=== PATIENT | female | born 1940 | race Two or more races ===

== ENCOUNTER 2016-08-18 08:08 | Emergency (ER) | payer MEDICARE, OTHER ==
[2016-08-18] MEDS ORDERED: ONDANSETRON 4 MG/2 ML VIAL IVP STA (08:31)
[2016-08-18] MEDS ORDERED: HYDROmorphone 1 MG/ML SYRINGE IVP STA ×2 (08:31→09:29)
[2016-08-18] MEDS ORDERED: SODIUM CHLORIDE 0.9% 1,000 ML IV ONE (08:31)
[2016-08-18] MEDS ORDERED: HYDROmorphone 1 MG/ML SYRINGE ONE ×2 (08:33→09:32)
[2016-08-18] MEDS ORDERED: ONDANSETRON 4 MG/2 ML VIAL ONE (08:34)
[2016-08-18] MEDS ORDERED: oxyCODONE 5 MG TABLET PO STA (14:47)
[2016-08-18] MEDS ORDERED: oxyCODONE 5 MG TABLET ONE (14:48)
== END 2016-08-18 15:16 | disposition home or self-care (01) ==
DX: N13.2 Hydronephrosis with renal and ureteral calculous obstruction (principal); R09.02 Hypoxemia; N28.9 Disorder of kidney and ureter, unspecified; I11.0 Hypertensive heart disease with heart failure; I50.9 Heart failure, unspecified
CPT/HCPCS: 36415; 71020; 71250; 74176; 76700; 80053; 81001; 83690; 84484; 85025; 96374; 96375; 96376; 99284; A9270; J1170

== ENCOUNTER 2016-12-19 08:00 | Outpatient (CLI) | payer MEDICARE, OTHER ==
[2016-12-19 15:00] LABS: CALCIUM 9.5 mg/dL (8.5-10.3); CREATININE 1.5 mg/dL (0.4-1.0); POTASSIUM 4.1 mmol/L (3.5-5.0)
== END 2016-12-19 23:59 ==
LOC: LAB.R 08:00
PROVIDERS: ATTEND Physician Assistant Medical
DX: I50.9 Heart failure, unspecified (principal); Z79.899 Other long term (current) drug therapy; R94.4 Abnormal results of kidney function studies
CPT/HCPCS: 80048; 83880

== ENCOUNTER 2017-01-30 11:15 | Outpatient (CLI) | payer MEDICARE, OTHER ==
[2017-01-30 14:18] LABS: CALCIUM 9.2 mg/dL (8.5-10.3); CREATININE 1.5 mg/dL (0.4-1.0); POTASSIUM 4.4 mmol/L (3.5-5.0)
== END 2017-01-30 11:16 | disposition home or self-care (01) ==
LOC: LAB.N 11:15
PROVIDERS: ATTEND Internal Medicine
DX: I50.9 Heart failure, unspecified (principal)
CPT/HCPCS: 36415; 80048; 83880

== ENCOUNTER 2017-02-27 13:15 | Outpatient (CLI) | payer MEDICARE, OTHER | END 2017-02-27 13:16 | disposition home or self-care (01) | LOC: RT 13:15 | PROVIDERS: ATTEND Internal Medicine Cardiovascular Disease | DX: R06.02 Shortness of breath (principal) | CPT/HCPCS: 93005 ==

== ENCOUNTER 2017-03-06 11:02 | Outpatient (CLI) | payer MEDICARE, OTHER ==
--- NOTE | 2017-03-06 17:01 | XRAY Report ---
TWO-VIEW CHEST: 03/06/2017 CLINICAL INDICATION: Shortness of breath, CHF. FINDINGS: Frontal and lateral views of the chest demonstrate an enlarged cardiac silhouette. Postop erative changes in the right upper lung are stable from CT of 08/18/2016. Trace right pleural effusi on is new from CT. No pulmonary vascular congestion, focal infiltrate, or pneumothorax is evident. IMPRESSION: CARDIOMEGALY. TRACE RIGHT PLEURAL EFFUSION, NEW FROM PREVIOUS CT. STABLE POSTOPERATIVE CHANGES. JOB #: [id number] EXT JOB #:[id number]
== END 2017-03-06 11:03 | disposition home or self-care (01) ==
LOC: DI 11:02
PROVIDERS: ATTEND Internal Medicine Cardiovascular Disease
DX: I50.9 Heart failure, unspecified (principal); R06.02 Shortness of breath; I50.20 Unspecified systolic (congestive) heart failure; I07.1 Rheumatic tricuspid insufficiency
CPT/HCPCS: 71020; 93306

== ENCOUNTER 2017-03-17 12:10 | Outpatient (CLI) | payer MEDICARE, OTHER ==
[2017-03-17 14:13] LABS: PT - PROTHROMBIN TIME 69.8 secs (9.9-12.6)
[2017-03-17 14:37] LABS: INR 6.1 (0.8-1.2)
== END 2017-03-17 12:11 | disposition home or self-care (01) ==
LOC: LAB 12:10
PROVIDERS: ATTEND Internal Medicine Cardiovascular Disease
DX: I48.2 Chronic atrial fibrillation (principal)
CPT/HCPCS: 85610

== ENCOUNTER 2017-03-19 13:41 | Outpatient (CLI) | payer MEDICARE, OTHER ==
[2017-03-19 14:13] LABS: PT - PROTHROMBIN TIME 34.1 secs (9.9-12.6)
== END 2017-03-19 13:42 | disposition home or self-care (01) ==
LOC: LAB 13:41
PROVIDERS: ATTEND Internal Medicine Cardiovascular Disease
DX: I48.2 Chronic atrial fibrillation (principal)
CPT/HCPCS: 36415; 85610

== ENCOUNTER 2017-03-24 13:40 | Outpatient (CLI) | payer MEDICARE, OTHER ==
[2017-03-24 14:24] LABS: INR 2.8 (0.8-1.2); PT - PROTHROMBIN TIME 31.7 secs (9.9-12.6)
== END 2017-03-24 13:41 | disposition home or self-care (01) ==
LOC: LAB 13:40
PROVIDERS: ATTEND Internal Medicine Cardiovascular Disease
DX: I48.2 Chronic atrial fibrillation (principal)
CPT/HCPCS: 36415; 85610

== ENCOUNTER 2017-03-31 12:28 | Outpatient (CLI) | payer MEDICARE, OTHER ==
[2017-03-31 13:02] LABS: INR 3.8 (0.8-1.2); PT - PROTHROMBIN TIME 43.7 secs (9.9-12.6)
== END 2017-03-31 12:29 | disposition home or self-care (01) ==
LOC: LAB 12:28
PROVIDERS: ATTEND Internal Medicine Cardiovascular Disease
DX: I48.2 Chronic atrial fibrillation (principal)
CPT/HCPCS: 36415; 85610

== ENCOUNTER 2017-04-07 10:41 | Outpatient (CLI) | payer MEDICARE, OTHER ==
[2017-04-07 11:16] LABS: INR 2.7 (0.8-1.2); PT - PROTHROMBIN TIME 30.4 secs (9.9-12.6)
== END 2017-04-07 10:42 | disposition home or self-care (01) ==
LOC: LAB 10:41
PROVIDERS: ATTEND Internal Medicine Cardiovascular Disease
DX: I48.2 Chronic atrial fibrillation (principal)
CPT/HCPCS: 36415; 85610

== ENCOUNTER 2017-04-18 13:44 | Outpatient (CLI) | payer MEDICARE, OTHER ==
[2017-04-18 14:26] LABS: INR 1.4 (0.8-1.2); PT - PROTHROMBIN TIME 15.7 secs (9.9-12.6)
== END 2017-04-18 13:45 | disposition home or self-care (01) ==
LOC: LAB 13:44
PROVIDERS: ATTEND Internal Medicine Cardiovascular Disease
DX: I48.2 Chronic atrial fibrillation (principal)
CPT/HCPCS: 36415; 85610

== ENCOUNTER 2017-04-27 12:00 | Outpatient (CLI) | payer MEDICARE, OTHER | END 2017-04-27 12:01 | disposition home or self-care (01) | LOC: DI 12:00 | PROVIDERS: ATTEND Internal Medicine | DX: I48.91 Unspecified atrial fibrillation (principal); I07.1 Rheumatic tricuspid insufficiency; I37.1 Nonrheumatic pulmonary valve insufficiency | CPT/HCPCS: 93306 ==

== ENCOUNTER 2017-04-28 10:09 | Outpatient (CLI) | payer MEDICARE, OTHER ==
[2017-04-28 14:04] LABS: PT - PROTHROMBIN TIME 50.7 secs (9.9-12.6)
[2017-04-28 14:28] LABS: INR 4.5 (0.8-1.2)
== END 2017-04-28 10:10 | disposition home or self-care (01) ==
LOC: LAB.N 10:09
PROVIDERS: ATTEND Internal Medicine Cardiovascular Disease
DX: I48.2 Chronic atrial fibrillation (principal)
CPT/HCPCS: 36415; 85610

== ENCOUNTER 2017-05-06 10:07 | Outpatient (CLI) | payer MEDICARE, OTHER | END 2017-05-06 10:08 | disposition home or self-care (01) | LOC: LAB.N 10:07 | PROVIDERS: ATTEND Internal Medicine | DX: I48.2 Chronic atrial fibrillation (principal) | CPT/HCPCS: 85610 ==

== ENCOUNTER 2017-05-07 05:44 | Outpatient (CLI) | payer MEDICARE, OTHER | END 2017-05-07 05:45 | disposition critical access hospital (66) | LOC: EMS 05:44 | PROVIDERS: ATTEND Surgery | DX: R07.9 Chest pain, unspecified (principal) | CPT/HCPCS: A0425; A0429 ==

== ENCOUNTER 2017-05-07 06:16 | Emergency (ER) | payer MEDICARE, OTHER ==
[2017-05-07] MEDS ORDERED: HYDROmorphone 1 MG/ML CARPUJECT IVP STA (06:43)
[2017-05-07] MEDS ORDERED: HYDROmorphone 1 MG/ML CARPUJECT ONE (06:51)
[2017-05-07] MEDS ORDERED: SODIUM CHLORIDE FLUSH 0.9% 10 ML SYRINGE IVP ONE ×2 (06:52→10:14)
[2017-05-07 07:09] LABS: BASOPHILS # (AUTO) 0.1 10^3/uL (0.0-0.1); BASOPHILS % (AUTO) 1.2 %; EOSINOPHILS # (AUTO) 0.1 10^3/uL (0.0-0.7); EOSINOPHILS % (AUTO) 1.9 %; HCT - HEMATOCRIT 43.5 % (37.0-47.0); LYMPHOCYTES # (AUTO) 0.8 10^3/uL (1.5-3.5); MEAN CORPUSCULAR HEMOGLOBIN 30.4 pg (27.0-31.0); MEAN CORPUSCULAR HGB CONC 32.1 g/dL (32.0-36.0); MEAN CORPUSCULAR VOLUME 94.8 fL (81.0-99.0); MEAN PLATELET VOLUME 9.7 fL (7.9-10.8); MONOCYTES # (AUTO) 0.7 10^3/uL (0.0-1.0); MONOCYTES % (AUTO) 12.1 %; NEUTROPHILS % (AUTO) 70.8 %; NUCLEATED RED BLOOD CELLS AUTO 0.2 /100WBC; RED BLOOD COUNT 4.59 10^6/uL (4.20-5.40); RED CELL DISTRIBUTION WIDTH 18.5 % (12.0-15.0); UNCORRECTED WHITE BLOOD COUNT 5.7 x10^3/uL; WHITE BLOOD COUNT 5.7 x10^3/uL (4.8-10.8)
[2017-05-07 07:21] LABS: CALCIUM 9.4 mg/dL (8.5-10.3); CREATININE 1.9 mg/dL (0.4-1.0); POTASSIUM 4.3 mmol/L (3.5-5.0)
--- NOTE | 2017-05-07 08:51 | CT Preliminary Report ---
Exam: CT Abdomen/Pelvis W/O IMPRESSION: 1. Slightly displaced left posterior ninth rib fracture 2. Third spacing with severe anasarca, small pleural effusions and mild ascites 3. Moderate cardiomegaly with right heart enlargement 4. Renal cortical thinning with scarring 5. Colonic diverticulosis 6. Degenerative lumbar spine [facility] SITE ID: [id number]
--- NOTE | 2017-05-07 08:53 | XRAY Preliminary Report ---
Exam: XR Chest 2 View PA/LAT IMPRESSION: 1. Cardiomegaly with vascular congestion without edema 2. Bibasilar subsegmental atelectasis 3. Small effusions [facility] SITE ID: [id number]
--- NOTE | 2017-05-07 08:54 | CT Report ---
EXAM: CT ABDOMEN AND PELVIS EXAM DATE: 05/07/2017 08:25 AM. CLINICAL HISTORY: LUQ tenderness after chest injury. COMPARISONS: CT abdomen and pelvis 08/18/2016. TECHNIQUE: Routine helical CT imaging was performed through the abdomen and pelvis. IV contrast: None . Enteric contrast: No. Reconstructions: Coronal and sagittal. In accordance with CT protocol optimization, one or more of the following dose reduction techniques w ere utilized for this exam: automated exposure control, adjustment of mA and/or KV based on patient s ize, or use of iterative reconstructive technique. FINDINGS: Lung Bases: Small right greater than left pleural effusions. Subsegmental atelectasis at the bases. R espiratory motion artifact. Moderate cardiomegaly with asymmetric right heart enlargement. Coronary artery atherosclerotic calcif ications. Liver: Normal. No masses. Gallbladder/Bile Ducts: Unremarkable. Spleen: Normal. Pancreas: Moderate pancreatic atrophy. No ductal dilatation. No mass seen. Adrenal Glands: Normal. Kidneys: Renal cortical thinning. Multifocal renal cortical loss consistent with scarring. No hydrone phrosis. Peritoneal Cavity/Bowel: Colonic diverticulosis. Pelvic Organs: Hysterectomy. Vasculature: Moderate aortoiliac atherosclerotic calcifications. Slight infrarenal aortic ectasia. 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 Bones: Degenerative changes at the pubic symphysis. Osteopenia. Slightly displaced left posterior juli th rib fracture. Retrolisthesis of L2 on L3 and L1 on L2. Grade 1 anterolisthesis of L4 on L5. Lumbar facet degenerative arthropathy. Other: Severe anasarca. Rectus diastases. Small fat and fluid-containing umbilical hernia. Pelvic wal l scarring. Mild ascites distending from the cul-de-sac into the bilateral paracolic gutters and into the upper abdomen beneath the diaphragms and scattered in the mesenteric leaflets. IMPRESSION: 1. Slightly displaced left posterior ninth rib fracture 2. Third spacing with severe anasarca, small pleural effusions and mild ascites 3. Moderate cardiomegaly with right heart enlargement 4. Renal cortical thinning with scarring 5. Colonic diverticulosis 6. Degenerative lumbar spine [facility] Referring Provider Line: [phone] SITE ID: [id number]
--- NOTE | 2017-05-07 08:55 | XRAY Report ---
EXAM: CHEST RADIOGRAPHY EXAM DATE: 05/07/2017 08:23 AM. CLINICAL HISTORY: Left chest pain after fall. COMPARISON: Chest radiograph 08/18/2016. TECHNIQUE: 2 views. FINDINGS: Lungs/Pleura: Vascular congestion. Bibasilar subsegmental atelectasis. Partial right lung resection. Blunting costophrenic angles. Mediastinum: Stable, enlarged cardiac silhouette Other: Osteopenia. Rotator cuff tears with high riding humeral heads IMPRESSION: 1. Cardiomegaly with vascular congestion without edema 2. Bibasilar subsegmental atelectasis 3. Small effusions [facility] Referring Provider Line: [phone] SITE ID: [id number]
--- NOTE | 2017-05-07 09:43 | ED Physician Documentation ---
PD HPI TRUNK INJURY - Stated complaint Stated Complaint: CHEST WALL PAIN - Chief complaint Chief Complaint: Trauma Ch/Bk - History obtained from History obtained from: Patient, Family - History of Present Illness Location: Posterior chest, Left chest Type of injury: Fall Timing - onset: How many days ago (4) Timing - duration: Days (4) Timing - details: Abrupt onset, Still present Quality: Pain, Spasm, Sharp Improved by: Rest, Immobilization Worsened by: Moving, Palpating Associated symtptoms: Discoloration. No: Weakness, Numbness Contributing factors: No: Anticoagulated Where injury occured: Home Similar symptoms before: Has not had sx before Recently seen: Not recently seen - Additional information Additional information: 77-year-old female with a history of pulmonary hypertension and congestive heart failure was in her home on Friday when she went to stand on a stool to get into her bed she slipped and fell and landed against a chest of drawers and hit the drawer knob on her back on the left. She has pain and a bruise to that area and the pain is much worse today. This morning about 4 AM she awoken with severe pain and the ambulance was called. Review of Systems Constitutional: denies: Fever, Chills, Myalgias Eyes: denies: Decreased vision Ears: denies: Ear pain Nose: denies: Congestion Throat: denies: Sore throat Cardiac: reports: Chest pain / pressure, Pedal edema. denies: Palpitations Respiratory: denies: Dyspnea, Cough GI: reports: Nausea. denies: Abdominal Pain, Vomiting, Constipation, Diarrhea : denies: Dysuria, Frequency Skin: denies: Rash Musculoskeletal: reports: Back pain, Extremity swelling. 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 - Present Medications Home Medications: Ambulatory Orders Medication Instructions Recorded Confirmed Carvedilol 25 mg PO BID 01/12/15 12/27/15 Losartan [Cozaar] 50 mg PO BID 01/12/15 12/27/15 amLODIPine [Norvasc] 5 mg PO DAILY 01/12/15 12/27/15 Furosemide [Lasix] 20 mg PO DAILY 11/28/15 12/27/15 Tolterodine Tartrate [Detrol] 2 mg PO DAILY 11/28/15 12/27/15 Venlafaxine ER [Effexor ER] 75 mg PO DAILY 11/28/15 12/27/15 Acetaminophen [Tylenol] 325 mg PO Q6H PRN 12/26/15 12/27/15 Hydrocodone/Acetaminophen [[place] 1 each PO Q6H PRN #20 tablet 03/12/16 5-325 Tablet] Naproxen 375 mg PO BID #20 tablet 03/12/16 Ondansetron Odt [Zofran] 4 mg TL Q6H PRN #10 tablet 08/18/16 oxyCODONE [Roxicodone] 5 mg PO Q4-6H #20 tablet 08/18/16 oxyCODONE/ACET 5/325 [Percocet 5 1 - 2 each PO Q6H PRN #20 tablet 05/07/17 mg/325 mg] - Allergies Allergies/Adverse Reactions: Allergies Allergy/AdvReac Type Severity Reaction Status Date / Time Penicillins Allergy Unknown Verified 05/07/17 07:11 pravastatin Allergy Unknown Verified 01/12/15 12:09 duloxetine HCl * AdvReac Unknown Verified 12/26/15 13:41 [From Cymbalta] - Social History Does the pt smoke?: No Smoking Status: Never smoker Does the pt drink ETOH?: No Does the pt have substance abuse?: No - Immunizations Immunizations are current?: Yes Immunizations: TDAP >10years/unknown - POLST Patient has POLST: No PD ED PE NORMAL - Vitals Vital signs reviewed: Yes (hypertensive ) - General General: Alert and oriented X 3, No acute distress, Well developed/nourished, Other (The patient has been medicated ) - HEENT HEENT: Atraumatic, PERRL - Neck Neck: Supple, no meningeal sign - Cardiac Cardiac: RRR, Other (2/6 holosystolic murmer at LSB) - Respiratory Respiratory: No respiratory distress, Clear bilaterally, Other (There is a bruise with ecchymosis to the left lower rib cage with specific point tenderness reproducing her pain ) - Abdomen Abdomen: Soft, Other (mild non-reproducible tenderness. ) - Back Back: No spinal TTP, Other (left CVA tenderness ) - Extremities Extremities: No deformity, Other (trace edema bilaterally ) - Neuro Neuro: No motor deficit, No sensory deficit - Psych Psych: Normal mood, Normal affect Results - Vitals Vitals: Vital Signs - 24 hr 05/07/17 05/07/17 05/07/17 06:25 07:11 09:10 Temperature 36.9 C 36.2 C L Heart Rate 80 86 73 Respiratory 18 18 16 Rate Blood Pressure 141/103 H 148/76 H 98/65 O2 Saturation 96 97 94 05/07/17 10:22 Temperature 37.1 C Heart Rate 68 Respiratory 18 Rate Blood Pressure 99/62 O2 Saturation 99 Oxygen O2 Source [With Activity] Room air O2 Source Room air - Labs Labs: Laboratory Tests 05/07/17 05/07/17 06:51 06:51 WBC 5.7 RBC 4.59 Hgb 14.0 Hct 43.5 MCV 94.8 MCH 30.4 MCHC 32.1 RDW 18.5 H Plt Count 108 L MPV 9.7 Neut # 4.0 Lymph # 0.8 L [place] # 0.7 Eos # 0.1 Baso # 0.1 Absolute Nucleated RBC 0.01 Nucleated RBC % 0.2 Sodium 141 Potassium 4.3 Chloride 106 Carbon Dioxide 24 Anion Gap 11.0 BUN 28 H Creatinine 1.9 H Estimated GFR (MDRD) 26 L Glucose 130 H Calcium 9.4 - Rads (name of study) CT abdomen pelvis without Radiology: Prelim report reviewed (Impression: 1. Slightly displaced left posterior ninth rib fracture. 2.Third spacing with severe anasarca, small pleural effusions and mild ascites. 3. Moderate cardiomegaly with right heart enlargement. 4. Renal cortical thinning with scarring. 5. Colonic diverticulosis. 6. Degenerative lumbar spine.), EMP read indepedently, See rad report 2 view chest Radiology: Prelim report reviewed (Impression: 1. Cardiomegaly with vascular congestion without edema. 2. Bibasilar sub-segmental atelectasis. 3. Small effusions.), See rad report PD MEDICAL DECISION MAKING - ED course Complexity details: reviewed results, re-evaluated patient, considered differential, d/w patient, d/w family ED course: 77-year-old female brought in by ambulance for back pain after a fall with a bruise to her chest wall has a fracture of her ninth rib posteriorly consistent with where her bruises. She has increased pain predictably on day #4 and here in the emergency department she has improvement in her pain with pain medication. She is given dexamethasone 10 mg intravenously and we will place her on some Percocet for pain control. CT scan of the abdomen pelvis and chest show evidence of anasarca and the patient does have known pulmonary hypertension and congestive heart failure. She does not appear to have intra- abdominal solid organ injury. Departure - Departure Disposition: 01 Home, Self Care Clinical Impression: Rib fracture Qualifiers: Encounter type: initial encounter Rib fracture type: single rib Fracture type: closed Laterality: left Qualified Code(s): S22.32XA - Fracture of one rib, left side, initial encounter for closed fracture Instructions: ED Fx Rib Follow-Up: Montana Ibarra MD [Primary Care Provider] - Prescriptions: oxyCODONE/ACET 5/325 [Percocet 5 mg/325 mg] 1 - 2 each PO Q6H PRN #20 tablet PRN Reason: Pain Discharge Date/Time: 05/07/17 10:46
[2017-05-07] MEDS ORDERED: DEXAMETHASONE 10 MG/ML VIAL IVP STA (09:47)
[2017-05-07] MEDS ORDERED: DEXAMETHASONE 10 MG/ML VIAL ONE (10:11)
[2017-05-07 10:23] VITALS: BP 99/62
== END 2017-05-07 10:46 | disposition home or self-care (01) ==
LOC: EDUNIT# → SUPCPDRO 06:16 → ED 06:16
DX: S22.32XA Fracture of one rib, left side, initial encounter for closed fracture (principal); W08.XXXA Fall from other furniture, initial encounter; Y92.013 Bedroom of single-family (private) house as the place of occurrence of the external cause; R18.8 Other ascites; I11.0 Hypertensive heart disease with heart failure; I50.9 Heart failure, unspecified; E78.00 Pure hypercholesterolemia, unspecified
CPT/HCPCS: 36415; 71020; 74176; 80048; 85025; 96374; 96375; 99284; J1170

== ENCOUNTER 2017-05-09 15:45 | Outpatient (CLI) | payer MEDICARE, OTHER | END 2017-05-09 15:46 | disposition critical access hospital (66) | LOC: EMS 15:45 | PROVIDERS: ATTEND Surgery | DX: R41.82 Altered mental status, unspecified (principal); R26.81 Unsteadiness on feet | CPT/HCPCS: A0425; A0427 ==

== ENCOUNTER 2017-05-09 16:22 | Emergency (ER) | payer MEDICARE, OTHER ==
[2017-05-09 17:03] LABS: BASOPHILS % (AUTO) 0.8 %; EOSINOPHILS # (AUTO) 0.1 10^3/uL (0.0-0.7); EOSINOPHILS % (AUTO) 1.2 %; HCT - HEMATOCRIT 43.2 % (37.0-47.0); HGB - HEMOGLOBIN 13.7 g/dL (12.0-16.0); LYMPHOCYTES % (AUTO) 16.1 %; MEAN CORPUSCULAR HEMOGLOBIN 30.3 pg (27.0-31.0); MEAN CORPUSCULAR HGB CONC 31.7 g/dL (32.0-36.0); MEAN CORPUSCULAR VOLUME 95.5 fL (81.0-99.0); MEAN PLATELET VOLUME 8.9 fL (7.9-10.8); MONOCYTES # (AUTO) 0.6 10^3/uL (0.0-1.0); MONOCYTES % (AUTO) 10.6 %; NEUTROPHILS # (AUTO) 4.2 10^3/uL (1.5-6.6); NEUTROPHILS % (AUTO) 71.3 %; NUCLEATED RED BLOOD CELLS AUTO 0.1 /100WBC; RED BLOOD COUNT 4.53 10^6/uL (4.20-5.40); RED CELL DISTRIBUTION WIDTH 18.9 % (12.0-15.0); UNCORRECTED WHITE BLOOD COUNT 5.9 x10^3/uL; WHITE BLOOD COUNT 5.9 x10^3/uL (4.8-10.8)
[2017-05-09 17:18] LABS: ALBUMIN/GLOBULIN RATIO 1.6 (1.0-2.2); BILIRUBIN,TOTAL 1.5 mg/dL (0.2-1.0); CALCIUM 9.3 mg/dL (8.5-10.3); CREATININE 2.5 mg/dL (0.4-1.0); POTASSIUM 3.9 mmol/L (3.5-5.0); TOTAL PROTEIN 5.7 g/dL (6.7-8.2)
--- NOTE | 2017-05-09 17:23 | ED Physician Documentation ---
PD HPI ALTERED MENTAL STATUS - Stated complaint Stated Complaint: AMS, COUGH - Chief complaint Chief Complaint: General - History obtained from History obtained from: Patient, EMS, Caregiver - History of Present Illness Timing - onset: Today Timing - details: Abrupt onset Associated symptoms: Fever. No: Headache Contributing factors: Anticoagulated. No: Recent illness [place] status: Alert and oriented X 3, Ambulatory, Independent Similar symptoms before: Has not had sx before Recently seen: Not recently seen Review of Systems Constitutional: denies: Fever, Chills Nose: denies: Rhinorrhea / runny nose, Congestion Cardiac: reports: Palpitations. denies: Chest pain / pressure Respiratory: denies: Cough GI: reports: Vomiting. denies: Abdominal Pain, Diarrhea Musculoskeletal: reports: Neck pain, Back pain Neurologic: reports: Generalized weakness Endocrine: reports: Polydypsia, Polyuria. 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 - Present Medications Home Medications: Ambulatory Orders Medication Instructions Recorded Confirmed Carvedilol 25 mg PO BID 01/12/15 12/27/15 Losartan [Cozaar] 50 mg PO BID 01/12/15 12/27/15 amLODIPine [Norvasc] 5 mg PO DAILY 01/12/15 12/27/15 Furosemide [Lasix] 20 mg PO DAILY 11/28/15 12/27/15 Tolterodine Tartrate [Detrol] 2 mg PO DAILY 11/28/15 12/27/15 Venlafaxine ER [Effexor ER] 75 mg PO DAILY 11/28/15 12/27/15 Acetaminophen [Tylenol] 325 mg PO Q6H PRN 12/26/15 12/27/15 Hydrocodone/Acetaminophen [[place] 1 each PO Q6H PRN #20 tablet 03/12/16 5-325 Tablet] Naproxen 375 mg PO BID #20 tablet 03/12/16 Ondansetron Odt [Zofran] 4 mg TL Q6H PRN #10 tablet 08/18/16 oxyCODONE [Roxicodone] 5 mg PO Q4-6H #20 tablet 08/18/16 oxyCODONE/ACET 5/325 [Percocet 5 1 - 2 each PO Q6H PRN #20 tablet 05/07/17 mg/325 mg] - Allergies Allergies/Adverse Reactions: Allergies Allergy/AdvReac Type Severity Reaction Status Date / Time Penicillins Allergy Unknown Verified 05/07/17 07:11 pravastatin Allergy Unknown Verified 01/12/15 12:09 duloxetine HCl * AdvReac Unknown Verified 12/26/15 13:41 [From Cymbalta] - Social History Does the pt smoke?: No Smoking Status: Never smoker Does the pt drink ETOH?: No Does the pt have substance abuse?: No - Immunizations Immunizations are current?: Yes Immunizations: TDAP >10years/unknown - POLST Patient has POLST: No PD ED PE NORMAL - Vitals Vital signs reviewed: Yes - General General: Alert and oriented X 3, No acute distress, Well developed/nourished - HEENT HEENT: Atraumatic, Moist mucous membranes - Neck Neck: Supple, no meningeal sign, No adenopathy - Respiratory Respiratory: No respiratory distress - Abdomen Abdomen: Soft, Non tender, Non distended - Back Back: No CVA TTP - Derm Derm: Normal color, Warm and dry - Extremities Extremities: No tenderness to palpate, Normal ROM s pain, No edema, No calf tenderness / cord - Neuro Neuro: Alert and oriented X 3, No motor deficit, Normal speech - Psych Psych: Normal mood, Normal affect - Free text exam Free text exam: improved here. She had had 2 pain pills together, this morning and then was found by staff to be llying down, poorly interactive. brought here with drake yeboah. Results - Vitals Vitals: Oxygen O2 Source [] Room air O2 Source Room air - EKG (time done) 16:34 Rate: Rate (enter#) (76) Rhythm: Atrial flutter, Atrial fibrillation Branch: Normal QRS: LVH Ischemia: Normal ST segments, ST elevation c/w ischemia Compare to prior EKG: Unchanged from prior EKG - Labs Labs: Laboratory Tests 05/09/17 05/09/17 16:53 16:53 WBC 5.9 RBC 4.53 Hgb 13.7 Hct 43.2 MCV 95.5 MCH 30.3 MCHC 31.7 L RDW 18.9 H Plt Count 104 L MPV 8.9 Neut # 4.2 Lymph # 1.0 L [place] # 0.6 Eos # 0.1 Baso # 0.0 Absolute Nucleated RBC 0.01 Nucleated RBC % 0.1 Sodium 140 Potassium 3.9 Chloride 105 Carbon Dioxide 24 Anion Gap 11.0 BUN 40 H Creatinine 2.5 H Estimated GFR (MDRD) 19 L Glucose 95 Calcium 9.3 Total Bilirubin 1.5 H AST 23 ALT 17 Alkaline Phosphatase 123 H Total Protein 5.7 L Albumin 3.5 Globulin 2.2 Albumin/Globulin Ratio 1.6 Lipase 26 - Rads (name of study) chest Radiology: Prelim report reviewed, EMP read contemporaneously (enlarged heart. mild congestion.) PD MEDICAL DECISION MAKING - ED course Complexity details: reviewed results, considered differential (she is feeling more alert here. She says she had taken 2 pain pills today, and usually just one. ), d/w patient, d/w family Departure - Departure Disposition: 01 Home, Self Care Clinical Impression: Altered mental status Qualifiers: Altered mental status type: somnolence Qualified Code(s): R40.0 - Somnolence Condition: Stable Record reviewed to determine appropriate education?: Yes Follow-Up: Montana Ibarra MD [Provider Admit Priv/Credential] - Comments: Continue current medications. Only take 1 pain pill at a time however just in case this led to some of the sedation and altered mentation he had this afternoon. Use Tylenol if needed for mild pain. Follow-up with Dr. Henry in the next couple of days regarding recheck and if you need assistance getting to assisted living. Discharge Date/Time: 05/09/17 20:00
[2017-05-09 19:26] VITALS: BP 139/86
--- NOTE | 2017-05-09 19:28 | XRAY Preliminary Report ---
Exam: XR Chest 2 View PA/LAT IMPRESSION: 1. Cardiomegaly with small bilateral pleural effusions, not significantly changed. [facility] SITE ID: [id number]
--- NOTE | 2017-05-09 19:31 | XRAY Report ---
EXAM: CHEST RADIOGRAPHY EXAM DATE: 05/09/2017 06:53 PM. CLINICAL HISTORY: Left rib fracture; syncope today. COMPARISON: 05/07/2017. TECHNIQUE: 2 views. FINDINGS: Lungs/Pleura: There are bilateral small pleural effusions. Negative for a pneumothorax. Lungs appear without significant interval change. Mediastinum: There is cardiomegaly. Central vasculature appears enlarged. Other: The lower left rib fractures not well seen on today's radiograph due to its position. IMPRESSION: 1. Cardiomegaly with small bilateral pleural effusions, not significantly changed. [facility] Referring Provider Line: [phone] SITE ID: [id number]
== END 2017-05-09 20:00 | disposition home or self-care (01) ==
LOC: EDUNIT# → ED 16:22
DX: R40.0 Somnolence (principal); I48.92 Unspecified atrial flutter; I45.10 Unspecified right bundle-branch block; R94.31 Abnormal electrocardiogram [ECG] [EKG]; I11.0 Hypertensive heart disease with heart failure; I50.9 Heart failure, unspecified; E78.00 Pure hypercholesterolemia, unspecified
CPT/HCPCS: 36415; 71020; 80053; 83690; 85025; 93005; 99284

== ENCOUNTER 2017-06-12 13:22 | Outpatient (CLI) | payer MEDICARE, OTHER | END 2017-06-12 13:23 | disposition home or self-care (01) | LOC: LAB.F 13:22 | PROVIDERS: ATTEND Internal Medicine | DX: I48.2 Chronic atrial fibrillation (principal) | CPT/HCPCS: 85610 ==

== ENCOUNTER 2017-08-13 11:22 | Outpatient (CLI) | payer MEDICARE, OTHER | END 2017-08-13 11:23 | disposition home or self-care (01) | LOC: LAB.F 11:22 | PROVIDERS: ATTEND Internal Medicine | DX: I48.2 Chronic atrial fibrillation (principal) | CPT/HCPCS: 85610 ==

== ENCOUNTER 2017-10-14 11:11 | Outpatient (CLI) | payer MEDICARE, OTHER | END 2017-10-14 11:12 | disposition home or self-care (01) | LOC: LAB.F 11:11 | PROVIDERS: ATTEND Internal Medicine | DX: I48.2 Chronic atrial fibrillation (principal) | CPT/HCPCS: 85610 ==

== ENCOUNTER 2017-11-06 09:50 | Outpatient (CLI) | payer MEDICARE, OTHER | END 2017-11-06 09:51 | disposition home or self-care (01) | LOC: LAB.F 09:50 | PROVIDERS: ATTEND Internal Medicine | DX: I48.2 Chronic atrial fibrillation (principal) | CPT/HCPCS: 85610 ==

== ENCOUNTER 2017-12-09 08:00 | Outpatient (CLI) | payer MEDICARE, OTHER | END 2017-12-09 08:01 | LOC: LAB.N 08:00 | PROVIDERS: ATTEND Internal Medicine | DX: I48.2 Chronic atrial fibrillation (principal) | CPT/HCPCS: 85610 ==

== ENCOUNTER 2017-12-29 08:00 | Outpatient (CLI) | payer MEDICARE, OTHER | END 2017-12-29 08:01 | LOC: LAB.N 08:00 | PROVIDERS: ATTEND Internal Medicine | DX: I48.2 Chronic atrial fibrillation (principal) | CPT/HCPCS: 85610 ==

== ENCOUNTER 2018-01-14 08:00 | Outpatient (CLI) | payer MEDICARE, OTHER | END 2018-01-14 08:01 | disposition home or self-care (01) | LOC: LAB.N 08:00 | PROVIDERS: ATTEND Internal Medicine | DX: I48.2 Chronic atrial fibrillation (principal) | CPT/HCPCS: 85610 ==

== ENCOUNTER 2018-02-10 14:00 | Outpatient (CLI) | payer MEDICARE, OTHER | END 2018-02-10 14:01 | disposition home or self-care (01) | LOC: LAB.N 14:00 | PROVIDERS: ATTEND Internal Medicine | DX: I48.2 Chronic atrial fibrillation (principal) | CPT/HCPCS: 85610 ==

== ENCOUNTER 2018-02-27 11:30 | Outpatient (CLI) | payer MEDICARE, OTHER | END 2018-02-27 11:31 | disposition home or self-care (01) | LOC: LAB.N 11:30 | PROVIDERS: ATTEND Internal Medicine | DX: I48.2 Chronic atrial fibrillation (principal) | CPT/HCPCS: 85610 ==

== ENCOUNTER 2018-03-24 11:33 | Outpatient (CLI) | payer MEDICARE, OTHER | END 2018-03-24 11:34 | disposition home or self-care (01) | LOC: LAB.N 11:33 | PROVIDERS: ATTEND Internal Medicine | DX: I48.2 Chronic atrial fibrillation (principal) | CPT/HCPCS: 85610 ==

== ENCOUNTER 2018-03-31 11:13 | Outpatient (CLI) | payer MEDICARE, OTHER | END 2018-03-31 11:14 | disposition home or self-care (01) | LOC: LAB.N 11:13 | PROVIDERS: ATTEND Internal Medicine | DX: I48.2 Chronic atrial fibrillation (principal) | CPT/HCPCS: 85610 ==

== ENCOUNTER 2018-04-15 11:13 | Outpatient (CLI) | payer MEDICARE, OTHER | END 2018-04-15 11:14 | disposition home or self-care (01) | LOC: LAB.N 11:13 | PROVIDERS: ATTEND Internal Medicine | DX: I48.2 Chronic atrial fibrillation (principal) | CPT/HCPCS: 85610 ==

== ENCOUNTER 2018-05-01 11:31 | Outpatient (CLI) | payer MEDICARE, OTHER | END 2018-05-01 11:32 | disposition home or self-care (01) | LOC: LAB.N 11:31 | PROVIDERS: ATTEND Internal Medicine | DX: I48.2 Chronic atrial fibrillation (principal) | CPT/HCPCS: 85610 ==

== ENCOUNTER 2018-05-28 11:44 | Outpatient (CLI) | payer MEDICARE, OTHER | END 2018-05-28 11:45 | LOC: LAB.N 11:44 | PROVIDERS: ATTEND Internal Medicine | DX: I48.2 Chronic atrial fibrillation (principal) | CPT/HCPCS: 85610 ==

== ENCOUNTER 2018-06-11 11:26 | Outpatient (CLI) | payer MEDICARE, OTHER ==
[2018-06-11 18:56] LABS: PT - PROTHROMBIN TIME 51.6 secs (9.9-12.6)
[2018-06-11 19:18] LABS: INR 4.6 (0.8-1.2)
== END 2018-06-11 11:27 | disposition home or self-care (01) ==
LOC: LAB.N 11:26
PROVIDERS: ATTEND Internal Medicine
DX: I48.2 Chronic atrial fibrillation (principal)
CPT/HCPCS: 36415; 85610

== ENCOUNTER 2018-06-25 11:02 | Outpatient (CLI) | payer MEDICARE, OTHER ==
[2018-06-25 19:40] LABS: INR 1.3 (0.8-1.2); PT - PROTHROMBIN TIME 14.2 secs (9.9-12.6)
== END 2018-06-25 11:03 ==
LOC: LAB.N 11:02
PROVIDERS: ATTEND Internal Medicine
DX: I48.2 Chronic atrial fibrillation (principal)
CPT/HCPCS: 36415; 85610

== ENCOUNTER 2018-07-09 15:23 | Outpatient (CLI) | payer MEDICARE, OTHER | END 2018-07-09 23:59 | LOC: LAB.N 15:23 | PROVIDERS: ATTEND Internal Medicine | DX: I48.2 Chronic atrial fibrillation (principal) | CPT/HCPCS: 85610 ==

== ENCOUNTER 2018-08-10 14:00 | Outpatient (CLI) | payer MEDICARE, OTHER | END 2018-08-10 14:01 | disposition home or self-care (01) | LOC: LAB.N 14:00 | PROVIDERS: ATTEND Internal Medicine | DX: I48.2 Chronic atrial fibrillation (principal) | CPT/HCPCS: 85610 ==

== ENCOUNTER 2018-08-20 11:29 | Outpatient (CLI) | payer MEDICARE, OTHER ==
[2018-08-20 19:25] LABS: BASOPHILS % (AUTO) 0.7 %; EOSINOPHILS # (AUTO) 0.1 10^3/uL (0.0-0.7); EOSINOPHILS % (AUTO) 1.3 %; HGB - HEMOGLOBIN 13.2 g/dL (12.0-16.0); LYMPHOCYTES # (AUTO) 0.8 10^3/uL (1.5-3.5); LYMPHOCYTES % (AUTO) 16.2 %; MEAN CORPUSCULAR HEMOGLOBIN 32.6 pg (27.0-31.0); MEAN CORPUSCULAR HGB CONC 32.3 g/dL (32.0-36.0); MEAN CORPUSCULAR VOLUME 100.9 fL (81.0-99.0); MEAN PLATELET VOLUME 9.3 fL (7.9-10.8); MONOCYTES # (AUTO) 0.4 10^3/uL (0.0-1.0); NEUTROPHILS # (AUTO) 3.5 10^3/uL (1.5-6.6); NEUTROPHILS % (AUTO) 73.8 %; PLT - PLATELET COUNT 114 10^3/uL (130-450); RED BLOOD COUNT 4.06 10^6/uL (4.20-5.40); RED CELL DISTRIBUTION WIDTH 13.8 % (12.0-15.0); WHITE BLOOD COUNT 4.7 x10^3/uL (4.8-10.8)
[2018-08-20 19:50] LABS: ALBUMIN/GLOBULIN RATIO 1.7 (1.0-2.2); ALKALINE PHOSPHATASE 109 IU/L (42-121); ALT ALANINE AMINOTRANSFERASE 25 IU/L (10-60); AST ASPARTATE AMINOTRANSFERASE 27 IU/L (10-42); BILIRUBIN,TOTAL 0.7 mg/dL (0.2-1.0); BUN - BLOOD UREA NITROGEN 49 mg/dL (6-20); CARBON DIOXIDE - CO2 25 mmol/L (21-32); CHLORIDE 106 mmol/L (101-111); CHOL/HDL RATIO 4.2 (<4.4); CHOLESTEROL 198 mg/dL; CREATININE 1.9 mg/dL (0.4-1.0); GFR - MDRD 26 (>89); GLUCOSE 106 mg/dL (70-100); HDL CHOLESTEROL 47 mg/dL; LDL CHOLESTEROL,CALCULATED 127 mg/dL; LDL/HDL RATIO 2.7 (<4.4); SODIUM 138 mmol/L (135-145); TOTAL PROTEIN 6.3 g/dL (6.7-8.2); VLDL CHOLESTEROL 24 mg/dL
[2018-08-21 09:10] LABS: HB2 TOTAL 14.2 g/dL; HEMOGLOBIN A1C 0.65 g/dL; HEMOGLOBIN A1C % 6.3 % (4.6-6.2)
== END 2018-08-20 23:59 | disposition home or self-care (01) ==
LOC: LAB.N 11:29
PROVIDERS: ATTEND Internal Medicine
DX: I48.2 Chronic atrial fibrillation (principal); Z79.899 Other long term (current) drug therapy; E11.9 Type 2 diabetes mellitus without complications; I42.9 Cardiomyopathy, unspecified; E78.5 Hyperlipidemia, unspecified
CPT/HCPCS: 36415; 80053; 80061; 83036; 83721; 84443; 85025; 85610

== ENCOUNTER 2018-08-21 08:00 | Outpatient (CLI) | payer MEDICARE, OTHER | END 2018-08-21 23:59 | disposition home or self-care (01) | LOC: LAB.R 08:00 | PROVIDERS: ATTEND Internal Medicine | DX: I48.91 Unspecified atrial fibrillation (principal); I42.9 Cardiomyopathy, unspecified; E78.5 Hyperlipidemia, unspecified; E11.9 Type 2 diabetes mellitus without complications | CPT/HCPCS: 83036 ==

== ENCOUNTER 2018-09-02 08:00 | Outpatient (CLI) | payer MEDICARE, OTHER | END 2018-09-02 23:59 | disposition home or self-care (01) | LOC: LAB.N 08:00 | PROVIDERS: ATTEND Internal Medicine | DX: I48.2 Chronic atrial fibrillation (principal) | CPT/HCPCS: 85610 ==

== ENCOUNTER 2018-09-17 15:30 | Outpatient (CLI) | payer MEDICARE, OTHER | END 2018-09-17 23:59 | disposition home or self-care (01) | LOC: LAB.N 15:30 | PROVIDERS: ATTEND Internal Medicine | DX: I48.2 Chronic atrial fibrillation (principal) | CPT/HCPCS: 85610 ==

== ENCOUNTER 2018-10-15 13:38 | Outpatient (CLI) | payer MEDICARE, OTHER ==
--- NOTE | 2018-10-15 23:13 | XRAY Report ---
Reason: SHORTNESS OF BREATH,PULMONERY HTN Procedure Date: 10/15/2018 Accession Number: [id number] / [id number] Procedure: XR - Chest 2 View X-Ray CPT Code: 04893 FULL RESULT: EXAM: CHEST RADIOGRAPHY EXAM DATE: 10/15/2018 02:53 PM. CLINICAL HISTORY: Dyspnea, pulmonary hypertension. COMPARISON: CHEST 2 VIEW PA/LAT 05/09/2017 6:31 PM. TECHNIQUE: 2 views. FINDINGS: Lungs/Pleura: No focal opacities evident. No pleural effusion. No pneumothorax. Normal volumes. There are surgical sutures projecting over the right upper chest. Mediastinum: There is cardiomegaly. There is thoracic aortic calcification. Other: None. IMPRESSION: 1. There is cardiomegaly. There is thoracic aortic calcification. 2. No acute intrathoracic plain film abnormality. [facility]
== END 2018-10-15 13:39 | disposition home or self-care (01) ==
LOC: DI 13:38
PROVIDERS: ATTEND Internal Medicine Cardiovascular Disease
DX: I27.20 Pulmonary hypertension, unspecified (principal); I51.7 Cardiomegaly; I70.0 Atherosclerosis of aorta
CPT/HCPCS: 71046

== ENCOUNTER 2018-10-15 13:44 | Outpatient (CLI) | payer MEDICARE, OTHER | END 2018-10-15 13:45 | disposition home or self-care (01) | LOC: DI 13:44 | PROVIDERS: ATTEND Internal Medicine Cardiovascular Disease | DX: I27.20 Pulmonary hypertension, unspecified (principal); I07.1 Rheumatic tricuspid insufficiency; I70.0 Atherosclerosis of aorta | CPT/HCPCS: 71046; 93306 ==

== ENCOUNTER 2018-10-27 08:00 | Outpatient (CLI) | payer MEDICARE, OTHER | END 2018-10-27 23:59 | disposition home or self-care (01) | LOC: LAB.N 08:00 | PROVIDERS: ATTEND Internal Medicine | DX: I48.91 Unspecified atrial fibrillation (principal); Z79.01 Long term (current) use of anticoagulants | CPT/HCPCS: 85610 ==

== ENCOUNTER 2018-11-11 10:52 | Outpatient (CLI) | payer MEDICARE, OTHER | END 2018-11-11 23:59 | disposition home or self-care (01) | LOC: LAB.N 10:52 | PROVIDERS: ATTEND Internal Medicine | DX: I48.91 Unspecified atrial fibrillation (principal) | CPT/HCPCS: 85610 ==

== ENCOUNTER 2018-11-27 08:00 | Outpatient (CLI) | payer MEDICARE, OTHER | END 2018-11-27 23:59 | disposition home or self-care (01) | LOC: LAB.N 08:00 | PROVIDERS: ATTEND Internal Medicine | DX: I48.91 Unspecified atrial fibrillation (principal); Z79.01 Long term (current) use of anticoagulants | CPT/HCPCS: 85610 ==

== ENCOUNTER 2018-12-08 17:06 | Outpatient (CLI) | payer MEDICARE, OTHER ==
[2018-12-08 17:39] LABS: CALCIUM 9.3 mg/dL (8.5-10.3); CREATININE 1.7 mg/dL (0.4-1.0); HGB - HEMOGLOBIN 13.5 g/dL (12.0-16.0); MEAN CORPUSCULAR HEMOGLOBIN 31.2 pg (27.0-31.0); MEAN CORPUSCULAR HGB CONC 32.3 g/dL (32.0-36.0); MEAN CORPUSCULAR VOLUME 96.8 fL (81.0-99.0); MEAN PLATELET VOLUME 8.7 fL (7.9-10.8); RED BLOOD COUNT 4.31 10^6/uL (4.20-5.40); RED CELL DISTRIBUTION WIDTH 14.2 % (12.0-15.0); WHITE BLOOD COUNT 5.2 x10^3/uL (4.8-10.8)
[2018-12-08 17:49] LABS: INR 2.4 (0.8-1.2); PT - PROTHROMBIN TIME 27.4 secs (9.9-12.6)
== END 2018-12-08 17:07 | disposition home or self-care (01) ==
LOC: LAB 17:06
PROVIDERS: ATTEND Family Medicine
DX: N18.3 Chronic kidney disease, stage 3 (moderate) (principal); I48.91 Unspecified atrial fibrillation; Z79.01 Long term (current) use of anticoagulants
CPT/HCPCS: 80048; 83880; 85027; 85610

== ENCOUNTER 2018-12-25 11:19 | Outpatient (CLI) | payer MEDICARE, OTHER | END 2018-12-25 23:59 | disposition home or self-care (01) | LOC: LAB.N 11:19 | PROVIDERS: ATTEND Internal Medicine | DX: I48.91 Unspecified atrial fibrillation (principal); Z79.01 Long term (current) use of anticoagulants | CPT/HCPCS: 85610 ==

== ENCOUNTER 2019-02-02 15:47 | Outpatient (CLI) | payer MEDICARE, OTHER ==
[2019-02-02 16:14] LABS: CALCIUM 9.1 mg/dL (8.5-10.3); CREATININE 1.8 mg/dL (0.4-1.0); HGB - HEMOGLOBIN 13.7 g/dL (12.0-16.0); MEAN CORPUSCULAR HGB CONC 30.1 g/dL (32.0-36.0); MEAN CORPUSCULAR VOLUME 99.6 fL (81.0-99.0); RED BLOOD COUNT 4.57 10^6/uL (4.20-5.40); RED CELL DISTRIBUTION WIDTH 14.3 % (12.0-15.0); WHITE BLOOD COUNT 4.8 x10^3/uL (4.8-10.8)
== END 2019-02-02 15:48 | disposition home or self-care (01) ==
LOC: LAB 15:47
PROVIDERS: ATTEND Family Medicine
DX: I27.20 Pulmonary hypertension, unspecified (principal); N18.3 Chronic kidney disease, stage 3 (moderate); I12.9 Hypertensive chronic kidney disease with stage 1 through stage 4 chronic kidney disease, or unspecified chronic kidney disease
CPT/HCPCS: 80048; 85027

== ENCOUNTER 2019-02-03 08:00 | Outpatient (CLI) | payer MEDICARE, OTHER | END 2019-02-03 08:01 | disposition home or self-care (01) | LOC: LAB.N 08:00 | PROVIDERS: ATTEND Internal Medicine | DX: I48.91 Unspecified atrial fibrillation (principal); Z79.01 Long term (current) use of anticoagulants | CPT/HCPCS: 85610 ==

== ENCOUNTER 2019-02-08 09:41 | Outpatient (CLI) | payer MEDICARE, OTHER | END 2019-02-08 23:59 | disposition home or self-care (01) | LOC: LAB.N 09:41 | PROVIDERS: ATTEND Internal Medicine | DX: I48.91 Unspecified atrial fibrillation (principal); Z79.01 Long term (current) use of anticoagulants | CPT/HCPCS: 85610 ==

== ENCOUNTER 2019-03-15 09:22 | Outpatient (CLI) | payer MEDICARE, OTHER | END 2019-03-15 23:59 | disposition home or self-care (01) | LOC: LAB.N 09:22 | PROVIDERS: ATTEND Family Medicine | DX: I48.91 Unspecified atrial fibrillation (principal); Z79.01 Long term (current) use of anticoagulants | CPT/HCPCS: 85610 ==

== ENCOUNTER 2019-04-19 08:00 | Outpatient (CLI) | payer MEDICARE, OTHER | END 2019-04-19 23:59 | disposition home or self-care (01) | LOC: LAB.N 08:00 | PROVIDERS: ATTEND Family Medicine | DX: I48.91 Unspecified atrial fibrillation (principal); Z79.01 Long term (current) use of anticoagulants | CPT/HCPCS: 85610 ==

== ENCOUNTER 2019-04-26 08:00 | Outpatient (CLI) | payer MEDICARE, OTHER | END 2019-04-26 23:59 | disposition home or self-care (01) | LOC: LAB.N 08:00 | PROVIDERS: ATTEND Family Medicine | DX: I48.91 Unspecified atrial fibrillation (principal); Z79.01 Long term (current) use of anticoagulants | CPT/HCPCS: 85610 ==

== ENCOUNTER 2019-07-27 15:19 | Outpatient (CLI) | payer MEDICARE, OTHER ==
[2019-07-27 16:24] LABS: CALCIUM 9.5 mg/dL (8.5-10.3); CREATININE 1.6 mg/dL (0.4-1.0)
== END 2019-07-27 15:20 | disposition home or self-care (01) ==
LOC: LAB 15:19
PROVIDERS: ATTEND Family Medicine
DX: I48.91 Unspecified atrial fibrillation (principal); I27.20 Pulmonary hypertension, unspecified; E78.5 Hyperlipidemia, unspecified; I50.9 Heart failure, unspecified; I11.0 Hypertensive heart disease with heart failure
CPT/HCPCS: 36415; 80048

== ENCOUNTER 2019-10-06 16:49 | Emergency (ER) | payer MEDICARE, OTHER ==
--- NOTE | 2019-10-06 18:45 | XRAY Report ---
Reason: cough Procedure Date: 10/06/2019 Accession Number: [id number] / [id number] Procedure: XR - Chest 2 View X-Ray CPT Code: 46994 Final Report FULL RESULT: EXAM: CHEST RADIOGRAPHY EXAM DATE: 10/06/2019 06:16 PM. CLINICAL HISTORY: Cough. COMPARISON: CHEST 2 VIEW 10/15/2018 2:45 PM. TECHNIQUE: 2 views. FINDINGS: Lungs/Pleura: There are bilateral upper lobe irregular shaped reticular opacities. There is no consolidative process. Negative for pulmonary edema and pneumothorax. Mediastinum: The heart appears mildly enlarged. There is moderate calcification of the thoracic aorta. Other: None. IMPRESSION: 1. Upper lobe scarring unchanged. 2. Cardiomegaly unchanged. [facility]
--- NOTE | 2019-10-06 18:51 | ED Physician Documentation ---
History of Present Illness - Stated complaint Stated Complaint: COLD - Chief complaint Chief Complaint: General - History obtained from History obtained from: Patient, Family () - Additonal information Additional information: 79 YEAR OLD FEMALE WITH HX OF CHF, HTN, HYPERLIPIDEMIA PRESENTS TO THE EMERGENCY DEPARTMENT BECAUSE OF PRODUCTIVE COUGH FOR ABOUT 1 WEEK. PATIENT'S HAS SIMILAR SYMPTOMS RECENTLY AND WAS PRESCRIBED A COURSE OF ANTIBIOTIC. PATIENT WAS SEEN BY PCP TODAY AND WAS NOTED TO HAVE A LOW TEMP, LOW BLOOD PRESSURE. PATIENT WAS RECOMMENDED TO COME TO THE EMERGENCY DEPARTMENT FOR FURTHER EVALUATION. PATIENT WAS RECENT PLACED ON LASIX 80 MG DAILY BECAUSE OF WEIGHT GAIN OF 20 LBS AND THERE WAS A CONCERN THAT PATIENT MAY BE DEHYDRATED A RESULT. THERE WAS NO HX OF FEVER. PERIPHERAL EDEMA OF BILATERAL LOWER EXTREMITIES HAVE LESSENED SINCE AN INCREASE IN LASIX. PATIENT WAS TOLD BY PCP TO GO BACK DOWN TO 40 MG DAILY TODAY. Review of Systems Constitutional: denies: Fever, Chills Eyes: denies: Photophobia Ears: denies: Tinnitus/ringing Nose: denies: Rhinorrhea / runny nose, Congestion Cardiac: denies: Chest pain / pressure, Palpitations Respiratory: reports: Dyspnea, Cough GI: denies: Abdominal Pain Skin: denies: Rash Neurologic: denies: Generalized weakness, Focal weakness, Syncope, Seizure PD PAST MEDICAL HISTORY - Past Medical History Cardiovascular: Congestive heart failure, Hypertension, High cholesterol Respiratory: None Endocrine/Autoimmune: None GI: None Psych: Depression Musculoskeletal: None - Past Surgical History 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 - Present Medications Home Medications: Ambulatory Orders Medication Instructions Recorded Confirmed Carvedilol 25 mg PO BID 01/12/15 12/27/15 Losartan [Cozaar] 50 mg PO BID 01/12/15 12/27/15 amLODIPine [Norvasc] 5 mg PO DAILY 01/12/15 12/27/15 Furosemide [Lasix] 20 mg PO DAILY 11/28/15 12/27/15 Tolterodine Tartrate [Detrol] 2 mg PO DAILY 11/28/15 12/27/15 Venlafaxine ER [Effexor ER] 75 mg PO DAILY 11/28/15 12/27/15 Acetaminophen [Tylenol] 325 mg PO Q6H PRN 12/26/15 12/27/15 Hydrocodone/Acetaminophen [[place] 1 each PO Q6H PRN #20 tablet 03/12/16 5-325 Tablet] Naproxen 375 mg PO BID #20 tablet 03/12/16 Ondansetron Odt [Zofran] 4 mg TL Q6H PRN #10 tablet 08/18/16 oxyCODONE [Roxicodone] 5 mg PO Q4-6H #20 tablet 08/18/16 oxyCODONE/ACET 5/325 [Percocet 5 1 - 2 each PO Q6H PRN #20 tablet 05/07/17 mg/325 mg] Doxycycline Hyclate 100 mg PO BID #20 capsule 10/06/19 guaiFENesin/DEXTROMETHORPHAN 10 ml PO Q8H PRN #120 ml 10/06/19 [Robitussin Dm] - Allergies Allergies/Adverse Reactions: Allergies Allergy/AdvReac Type Severity Reaction Status Date / Time Penicillins Allergy Unknown Verified 10/06/19 17:04 pravastatin Allergy Unknown Verified 10/06/19 17:04 duloxetine HCl * AdvReac Unknown Verified 10/06/19 17:04 [From Cymbalta] - Social History Does the pt smoke?: No Smoking Status: Never smoker Does the pt drink ETOH?: No Does the pt have substance abuse?: No - Immunizations Immunizations are current?: Yes Immunizations: TDAP >10years/unknown - POLST Patient has POLST: No PD ED PE NORMAL - General General: Alert and oriented X 3 - HEENT HEENT: Atraumatic - Neck Neck: Supple, no meningeal sign - Cardiac Cardiac: RRR - Respiratory Respiratory: No respiratory distress, Clear bilaterally - Derm Derm: Normal color, Warm and dry - Extremities Extremities: Other (BILATERAL PERIPHERAL EDEMA 2+) - Neuro Neuro: Alert and oriented X 3, 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 Eye Opening: Spontaneous Motor: Obeys Commands Verbal: Oriented GCS Score: 15 Results - Vitals Vitals: Oxygen O2 Source [] Room air O2 Source Room air - EKG (time done) 1858 Rate: Rate (enter#) (95) [place]: RAD Intervals: Prolonged [place], RBBB Ischemia: Non specific changes - Labs Labs: Laboratory Tests 10/06/19 10/06/19 10/06/19 18:50 18:50 18:50 WBC 8.5 RBC 4.95 Hgb 15.9 Hct 48.8 H MCV 98.6 MCH 32.1 H MCHC 32.6 RDW 13.7 Plt Count 217 MPV 10.7 Neut # (Auto) Not Reportable Lymph # (Auto) Not Reportable [place] # (Auto) Not Reportable Eos # (Auto) Not Reportable Baso # (Auto) Not Reportable Absolute Nucleated RBC Not Reportable Total Counted 100 Band Neuts % (Manual) 3 Abnorm Lymph % (Manual) 0 Nucleated RBC % Not Reportable Neutrophils # (Manual) 6.9 H Lymphocytes # (Manual) 0.7 L Monocytes # (Manual) 0.9 Eosinophils # (Manual) 0.0 Basophils # (Manual) 0.0 Differential Comment MANUAL DIFFERENTIAL Manual Slide Review Indicated WBC Morphology NORMAL APPEARANCE Platelet Estimate NORMAL (130-450,000) Platelet Morphology NORMAL APPEARANCE RBC Morph Micro Appear NORMAL APPEARANCE Sodium 137 Potassium 4.1 Chloride 100 L Carbon Dioxide 24 Anion Gap 13.0 BUN 69 H Creatinine 2.6 H Estimated GFR (MDRD) 18 L Glucose 155 H Calcium 8.4 L Total Bilirubin 0.8 AST 28 ALT 21 Alkaline Phosphatase 102 Troponin I High Sens 35.0 H* B-Natriuretic Peptide Total Protein 5.0 L Albumin 2.3 L Globulin 2.7 Albumin/Globulin Ratio 0.9 L Lipase 31 10/06/19 10/06/19 18:50 21:28 WBC RBC Hgb Hct MCV MCH MCHC RDW Plt Count MPV Neut # (Auto) Lymph # (Auto) [place] # (Auto) Eos # (Auto) Baso # (Auto) Absolute Nucleated RBC Total Counted Band Neuts % (Manual) Abnorm Lymph % (Manual) Nucleated RBC % Neutrophils # (Manual) Lymphocytes # (Manual) Monocytes # (Manual) Eosinophils # (Manual) Basophils # (Manual) Differential Comment Manual Slide Review WBC Morphology Platelet Estimate Platelet Morphology RBC Morph Micro Appear Sodium Potassium Chloride Carbon Dioxide Anion Gap BUN Creatinine Estimated GFR (MDRD) Glucose Calcium Total Bilirubin AST ALT Alkaline Phosphatase Troponin I High Sens 33.0 H* B-Natriuretic Peptide 1521 H Total Protein Albumin Globulin Albumin/Globulin Ratio Lipase PD MEDICAL DECISION MAKING - ED course Complexity details: reviewed results, re-evaluated patient, d/w patient, d/w [facility] ED course: 79 YEAR OLD FEMALE PRESENTS TO THE EMERGENCY DEPARTMENT WITH COUGH FOR 1 WEEK. VITALS WERE STABLE. SHE HAS A HX OF CHF AND WAS PRESCRIBED LASIX 40 MG TWICE D AILY. PATIENT REMAINED STABLE. LABS SHOW ACUTE ON CHRONIC RENAL INSUFFICIENCY LIKELY FROM OVER DIURESIS. GIVEN A HX OF CHF, PATIENT WAS ONLY GIVEN A SMALL FLUID BOLUS. I RECOMMEND TO GO BACK TO LASIX 40 MG INSTRUCTED BY PCP. RECHECK CREATININE WITH PCP. PATIENT WAS PRESCRIBED DOXYCYLINE FOR BRONCHITIS. DIAGNOSIS AND TREATMENT PLAN WERE DISCUSSED. OUTPATIENT FOLLOW UP WITH PCP WAS INSTRUCTED. STRICT RETURN INSTRUCTIONS WERE GIVEN. PATIENT WAS DISCHARGED IN STABLE CONDITION. Departure - Departure Disposition: 01 Home, Self Care Clinical Impression: Chronic kidney disease, Bronchitis, Chronic congestive heart failure Condition: Stable Instructions: Bronchitis Acute Dc, ED CHF General, ED Insufficiency Renal Follow-Up: Jd Arnold MD [Primary Care Provider] - Within 3 Days Prescriptions: Doxycycline Hyclate 100 mg PO BID #20 capsule guaiFENesin/DEXTROMETHORPHAN [Robitussin Dm] 10 ml PO Q8H PRN #120 ml PRN Reason: Cough Comments: PLEASE FOLLOW UP WITH YOUR DOCTOR SOON POSSIBLE IN 3 DAYS. PLEASE TAKE LASIX 40 MG DAILY (NOT 80 MG). PLEASE RECHECK YOUR KIDNEY FUNCTION TEST PER YOUR DOCTOR'S ADVICE. PLEASE RETURN TO THE EMERGENCY DEPARTMENT IF YOU EXPERIENCE A FEVER OF 100.4 OR GREATER, CHEST PAIN, SHORTNESS OF BREATH, DIZZINESS OR ANY NEW OR CONCERNING SYMPTOMS. Discharge Date/Time: 10/06/19 22:33
[2019-10-06 19:01] LABS: BASOPHILS % (AUTO) 0.7 %; EOSINOPHILS % (AUTO) 0.1 %; HGB - HEMOGLOBIN 15.9 g/dL (12.0-16.0); LYMPHOCYTES % (AUTO) 9.6 %; MEAN CORPUSCULAR HEMOGLOBIN 32.1 pg (27.0-31.0); MEAN CORPUSCULAR HGB CONC 32.6 g/dL (32.0-36.0); MEAN CORPUSCULAR VOLUME 98.6 fL (81.0-99.0); MEAN PLATELET VOLUME 10.7 fL (7.9-10.8); MONOCYTES % (AUTO) 13.1 %; PLT - PLATELET COUNT 217 10^3/uL (130-450); RED BLOOD COUNT 4.95 10^6/uL (4.20-5.40); RED CELL DISTRIBUTION WIDTH 13.7 % (12.0-15.0); WHITE BLOOD COUNT 8.5 x10^3/uL (4.8-10.8)
[2019-10-06 19:03] LABS: ABNORMAL LYMPHS % (MANUAL) 0 %
[2019-10-06 19:07] LABS: ALBUMIN 2.3 g/dL (3.2-5.5); ALBUMIN/GLOBULIN RATIO 0.9 (1.0-2.2); BILIRUBIN,TOTAL 0.8 mg/dL (0.2-1.0); CALCIUM 8.4 mg/dL (8.5-10.3); CREATININE 2.6 mg/dL (0.4-1.0)
[2019-10-06 19:42] LABS: BAND NEUTROPHILS % (MANUAL) 3 %; DIFFERENTIAL COMMENT MANUAL DIFFERENTIAL; LYMPHOCYTES # (MANUAL) 0.7 10^3/uL (1.5-3.5); LYMPHOCYTES % (MANUAL) 8 %; MONOCYTES # (MANUAL) 0.9 10^3/uL (0.0-1.0); PLATELET ESTIMATE, MANUAL NORMAL (130-450,000) (NORMAL); PLATELET MORPHOLOGY NORMAL APPEARANCE (NORMAL); RBC MORPHOLOGY (MULTIPLE) NORMAL APPEARANCE (NORMAL)
[2019-10-06] MEDS ORDERED: SODIUM CHLORIDE 0.9% 500 ML IV ONE (20:00)
[2019-10-06] MEDS ORDERED: DOXYCYCLINE 100 MG TABLET PO STA (22:03)
[2019-10-06 22:07] VITALS: BP 117/100
== END 2019-10-06 22:33 | disposition home or self-care (01) ==
LOC: ED 16:49
DX: J40 Bronchitis, not specified as acute or chronic (principal); N17.9 Acute kidney failure, unspecified; I13.0 Hypertensive heart and chronic kidney disease with heart failure and stage 1 through stage 4 chronic kidney disease, or unspecified chronic kidney disease; N18.9 Chronic kidney disease, unspecified; I50.9 Heart failure, unspecified; E78.5 Hyperlipidemia, unspecified; I45.10 Unspecified right bundle-branch block; Z88.0 Allergy status to penicillin
CPT/HCPCS: 36415; 71046; 80053; 83690; 83880; 84484; 85025; 93005; 96360; 99284; A9270

== ENCOUNTER 2019-10-07 16:08 | Outpatient (CLI) | payer MEDICARE, OTHER | END 2019-10-07 16:09 | disposition critical access hospital (66) | LOC: EMS 16:08 | PROVIDERS: ATTEND Surgery | DX: I46.9 Cardiac arrest, cause unspecified (principal) | CPT/HCPCS: A0425; A0433 ==

== ENCOUNTER 2019-10-07 16:33 | Emergency (ER) | payer MEDICARE, OTHER ==
[2019-10-07 16:53] LABS: BASOPHILS % (AUTO) 0.9 %; EOSINOPHILS % (AUTO) 0.1 %; HGB - HEMOGLOBIN 12.7 g/dL (12.0-16.0); LYMPHOCYTES % (AUTO) 18.6 %; MEAN CORPUSCULAR HEMOGLOBIN 30.9 pg (27.0-31.0); MEAN CORPUSCULAR HGB CONC 29.1 g/dL (32.0-36.0); MEAN CORPUSCULAR VOLUME 106.3 fL (81.0-99.0); MEAN PLATELET VOLUME 11.3 fL (7.9-10.8); MONOCYTES % (AUTO) 7.8 %; NEUTROPHILS % (AUTO) 62.3 %; PLT - PLATELET COUNT 100 10^3/uL (130-450); RED BLOOD COUNT 4.11 10^6/uL (4.20-5.40); RED CELL DISTRIBUTION WIDTH 13.9 % (12.0-15.0); WHITE BLOOD COUNT 9.1 x10^3/uL (4.8-10.8)
--- NOTE | 2019-10-07 16:53 | XRAY Report ---
Reason: cpr Procedure Date: 10/07/2019 Accession Number: [id number] / [id number] Procedure: XR - Chest 1 View X-Ray CPT Code: 90885 Addended Final Report FULL RESULT: EXAM: CHEST RADIOGRAPHY EXAM DATE: 10/07/2019 04:43 PM. CLINICAL HISTORY: Respiratory failure. Intubated. Post CPR. COMPARISON: CHEST 2 VIEW 10/06/2019 5:57 PM. TECHNIQUE: 1 view. FINDINGS: Lungs/Pleura: There is a small right pneumothorax. There is pleural separation at the apex of 7 mm. No left pneumothorax. No consolidative process. There are findings of previous right lung surgery. Mediastinum: The tip of the endotracheal tube is 1.8 cm above the kaitlin. There is atherosclerotic calcification of the aortic arch unchanged. Cardiac silhouette is borderline. Other: None. IMPRESSION: 1. New small right pneumothorax. Critical result. 2. Endotracheal tube tip 1.8 cm above kaitlin. RADIA The critical result notification system was initiated by Dr. Deepak Viramontes at 04:51 PM on 10/07/2019. ADDENDUM: 10/07/19 17:03 The above critical result findings were discussed with Er by Dr. Deepak Viramontes at 05:03 PM on 10/07/2019.
[2019-10-07 16:56] LABS: ABNORMAL LYMPHS % (MANUAL) 0 %
[2019-10-07 16:58] LABS: VBG BASE EXCESS -20.5 mmol/L (-2 - +2); VBG PCO2 53.7 mmHg (41-51); VBG PH 6.954 (7.31-7.41); VBG PO2 47.6 mmHg (25-47); VBG TOTAL CO2 13.3 mmol/L (24-29)
[2019-10-07 17:06] LABS: INR 5.5 (0.8-1.2)
[2019-10-07 17:12] LABS: BAND NEUTROPHILS % (MANUAL) 17 %; DIFFERENTIAL COMMENT MANUAL DIFFERENTIAL; LYMPHOCYTES # (MANUAL) 1.1 10^3/uL (1.5-3.5); LYMPHOCYTES % (MANUAL) 12 %; METAMYELOCYTES % (MANUAL) 1 %; MONOCYTES # (MANUAL) 1.2 10^3/uL (0.0-1.0); MYELOCYTES % (MANUAL) 1 %; PLATELET ESTIMATE, MANUAL DECREASED (<130,000) (NORMAL); PLATELET MORPHOLOGY NORMAL APPEARANCE (NORMAL)
[2019-10-07 17:15] LABS: ALBUMIN 1.1 g/dL (3.2-5.5); ALBUMIN/GLOBULIN RATIO 0.6 (1.0-2.2); ALKALINE PHOSPHATASE 77 IU/L (42-121); ALT ALANINE AMINOTRANSFERASE 320 IU/L (10-60); AST ASPARTATE AMINOTRANSFERASE 788 IU/L (10-42); BUN - BLOOD UREA NITROGEN 65 mg/dL (6-20); CHLORIDE 114 mmol/L (101-111); CREATININE 3.1 mg/dL (0.4-1.0); GFR - MDRD 15 (>89); GLUCOSE 118 mg/dL (70-100); LIPASE 40 U/L (22-51); SODIUM 143 mmol/L (135-145)
--- NOTE | 2019-10-07 17:20 | XRAY Report ---
Reason: post chest tube Procedure Date: 10/07/2019 Accession Number: [id number] / [id number] Procedure: XR - Chest 1 View X-Ray CPT Code: 98373 Final Report FULL RESULT: EXAM: CHEST RADIOGRAPHY EXAM DATE: 10/07/2019 05:13 PM. CLINICAL HISTORY: Pneumothorax and chest tube. COMPARISON: CHEST 1 VIEW 10/07/2019 4:26 PM. TECHNIQUE: 1 view. FINDINGS: Lungs/Pleura: There is a new right-sided chest tube. No residual right pneumothorax visualized. No new airspace disease. Mediastinum: The tip of the endotracheal tube is approximately 1.7 cm above the kaitlin. Stable mediastinal silhouette size. Other: None. IMPRESSION: 1. New right chest tube with resolution of right pneumothorax. RADIA
[2019-10-07 17:21] LABS: CALCIUM 5.7 mg/dL (8.5-10.3); CARBON DIOXIDE - CO2 12 mmol/L (21-32); TOTAL PROTEIN < 3.0 g/dL (6.7-8.2)
--- NOTE | 2019-10-07 17:55 | ED Physician Documentation ---
PD HPI CPR - Stated complaint Stated Complaint: CPR - Chief complaint Chief Complaint: Critical Care - History obtained from History obtained from: Family (so), EMS - History of Present Illness Timing - onset: Today (79-year-old woman with some chronic illnesses was here yesterday, her work-up was basically negative. Today she was tired all day and per the significant other was basically sleepy and unarousable. EMS was called and found her to be pulseless. 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 - Present Medications Home Medications: Ambulatory Orders Medication Instructions Recorded Confirmed Carvedilol 25 mg PO BID 01/12/15 12/27/15 Losartan [Cozaar] 50 mg PO BID 01/12/15 12/27/15 amLODIPine [Norvasc] 5 mg PO DAILY 01/12/15 12/27/15 Furosemide [Lasix] 20 mg PO DAILY 11/28/15 12/27/15 Tolterodine Tartrate [Detrol] 2 mg PO DAILY 11/28/15 12/27/15 Venlafaxine ER [Effexor ER] 75 mg PO DAILY 11/28/15 12/27/15 Acetaminophen [Tylenol] 325 mg PO Q6H PRN 12/26/15 12/27/15 Hydrocodone/Acetaminophen [[place] 1 each PO Q6H PRN #20 tablet 03/12/16 5-325 Tablet] Naproxen 375 mg PO BID #20 tablet 03/12/16 Ondansetron Odt [Zofran] 4 mg TL Q6H PRN #10 tablet 08/18/16 oxyCODONE [Roxicodone] 5 mg PO Q4-6H #20 tablet 08/18/16 oxyCODONE/ACET 5/325 [Percocet 5 1 - 2 each PO Q6H PRN #20 tablet 05/07/17 mg/325 mg] Doxycycline Hyclate 100 mg PO BID #20 capsule 10/06/19 guaiFENesin/DEXTROMETHORPHAN 10 ml PO Q8H PRN #120 ml 10/06/19 [Robitussin Dm] - Allergies Allergies/Adverse Reactions: Allergies Allergy/AdvReac Type Severity Reaction Status Date / Time Penicillins Allergy Unknown Verified 10/06/19 17:04 pravastatin Allergy Unknown Verified 10/06/19 17:04 duloxetine HCl * AdvReac Unknown Verified 10/06/19 17:04 [From Cymbalta] - Social History Does the pt smoke?: No Smoking Status: Never smoker Does the pt drink ETOH?: No Does the pt have substance abuse?: No - Immunizations Immunizations are current?: Yes Immunizations: TDAP >10years/unknown - POLST Patient has POLST: No PD ED PE NORMAL - Vitals Vital signs reviewed: Yes - General General: Other (She is intubated with fixed and dilated pupils, some spontaneous agonal breathing but otherwise unresponsive.) - Respiratory Respiratory: Clear bilaterally - Abdomen Abdomen: Non tender - Extremities Extremities: Other (Dusky extremities) - Neuro Eye Opening: None Motor: None Verbal: None GCS Score: 3 Results - Vitals Vitals: Vital Signs - 24 hr 10/07/19 17:15 Heart Rate 65 Oxygen O2 Source [] Room air O2 Source Room air - EKG (time done) 1718 Rate: Rate (enter#) (100) Rhythm: Sinus tachycardia Intervals: RBBB Ischemia: ST elevation c/w ischemia (?inferior) Computer interpretation: Agree with computer - Labs Labs: Laboratory Tests 10/07/19 10/07/19 10/07/19 16:46 16:46 16:46 WBC 9.1 RBC 4.11 L Hgb 12.7 Hct 43.7 MCV 106.3 H MCH 30.9 MCHC 29.1 L RDW 13.9 Plt Count 100 L MPV 11.3 H Neut # (Auto) Not Reportable Lymph # (Auto) Not Reportable [place] # (Auto) Not Reportable Eos # (Auto) Not Reportable Baso # (Auto) Not Reportable Absolute Nucleated RBC Not Reportable Total Counted 100 Band Neuts % (Manual) 17 H Abnorm Lymph % (Manual) 0 Metamyelocytes % 1 H Myelocytes % 1 H Nucleated RBC % Not Reportable Neutrophils # (Manual) 6.6 Lymphocytes # (Manual) 1.1 L Monocytes # (Manual) 1.2 H Eosinophils # (Manual) 0.0 Basophils # (Manual) 0.0 Nucleated RBCs 8 Differential Comment MANUAL DIFFERENTIAL Manual Slide Review Indicated WBC Morphology NORMAL APPEARANCE Platelet Estimate DECREASED (<130,000) Platelet Morphology NORMAL APPEARANCE RBC Morph Micro Appear 1+ POLYCHROMASIA PT 57.0 H INR 5.5 H* VBG pH VBG pCO2 VBG pO2 VBG HCO3 VBG Total CO2 VBG O2 Saturation VBG Base Excess Sodium 143 Potassium 4.7 Chloride 114 H Carbon Dioxide 12 L* Anion Gap 17.0 H BUN 65 H Creatinine 3.1 H Estimated GFR (MDRD) 15 L Glucose 118 H Lactic Acid Calcium 5.7 L* Total Bilirubin 1.0 AST 788 H ALT 320 H Alkaline Phosphatase 77 Troponin I High Sens B-Natriuretic Peptide Total Protein < 3.0 L Albumin 1.1 L Globulin 1.9 L Albumin/Globulin Ratio 0.6 L Lipase 40 Ethyl Alcohol < 5.0 10/07/19 10/07/19 10/07/19 16:46 16:46 16:46 WBC RBC Hgb Hct MCV MCH MCHC RDW Plt Count MPV Neut # (Auto) Lymph # (Auto) [place] # (Auto) Eos # (Auto) Baso # (Auto) Absolute Nucleated RBC Total Counted Band Neuts % (Manual) Abnorm Lymph % (Manual) Metamyelocytes % Myelocytes % Nucleated RBC % Neutrophils # (Manual) Lymphocytes # (Manual) Monocytes # (Manual) Eosinophils # (Manual) Basophils # (Manual) Nucleated RBCs Differential Comment Manual Slide Review WBC Morphology Platelet Estimate Platelet Morphology RBC Morph Micro Appear PT INR VBG pH VBG pCO2 VBG pO2 VBG HCO3 VBG Total CO2 VBG O2 Saturation VBG Base Excess Sodium Potassium Chloride Carbon Dioxide Anion Gap BUN Creatinine Estimated GFR (MDRD) Glucose Lactic Acid > 10.0 H* Calcium Total Bilirubin AST ALT Alkaline Phosphatase Troponin I High Sens 217.0 H* B-Natriuretic Peptide 1269 H Total Protein Albumin Globulin Albumin/Globulin Ratio Lipase Ethyl Alcohol 10/07/19 16:46 WBC RBC Hgb Hct MCV MCH MCHC RDW Plt Count MPV Neut # (Auto) Lymph # (Auto) [place] # (Auto) Eos # (Auto) Baso # (Auto) Absolute Nucleated RBC Total Counted Band Neuts % (Manual) Abnorm Lymph % (Manual) Metamyelocytes % Myelocytes % Nucleated RBC % Neutrophils # (Manual) Lymphocytes # (Manual) Monocytes # (Manual) Eosinophils # (Manual) Basophils # (Manual) Nucleated RBCs Differential Comment Manual Slide Review WBC Morphology Platelet Estimate Platelet Morphology RBC Morph Micro Appear PT INR VBG pH 6.954 L VBG pCO2 53.7 H VBG pO2 47.6 H VBG HCO3 11.6 L VBG Total CO2 13.3 L VBG O2 Saturation 57.9 L VBG Base Excess -20.5 L Sodium Potassium Chloride Carbon Dioxide Anion Gap BUN Creatinine Estimated GFR (MDRD) Glucose Lactic Acid Calcium Total Bilirubin AST ALT Alkaline Phosphatase Troponin I High Sens B-Natriuretic Peptide Total Protein Albumin Globulin Albumin/Globulin Ratio Lipase Ethyl Alcohol - Rads (name of study) Single view chest Radiology: EMP read contemporaneously (Right-sided pneumothorax, endotracheal tube okay) Single view chest after chest tube Radiology: EMP read contemporaneously (Resolution of previously seen pneumothor ax) Procedures - Central Line Central Line Preparation: Unable to obtain consent Central line location: Right Femoral Central line type: Triple lumen Central line aftercare: Secured - Chest Tube (location) right 6th middle axillary line Chest tube preparation: Unable to consent, Sterile prep and drape Chest tube location: Right, Mid axillary line Chest tube anesthesia: No: Lidocaine Chest tube size: 32 Chest tube return: Air Chest tube after care: Sutured, Confirmed with xray PD MEDICAL DECISION MAKING - ED course ED course: 79-year-old woman presents with CPR ongoing, in a PEA the whole time. Briefly had some return of spontaneous circulation a couple of times here and thus the code was quite prolonged but cardiac motion continued to dwindle on bedside ultrasound. She did have a pneumothorax, and a chest tube was placed. She also had an IO in the leg, but a central line was placed as well. We did CPR for Over an hour and eventually the code was called because of lack of forward motion and long downtime after discussion with the significant other confirming that she likely would be a DNR but never filled out the paperwork. While in the department she received CPR for most of the time she was here in addition to 11 doses of epinephrine, 3 A of bicarb, a Levophed drip and 1 dose of calcium chloride. Departure - Departure Disposition: 20 Clinical Impression: Cardiac arrest
[2019-10-07] MEDS ORDERED: EPINEPHrine ABBOJECT 1 MG/10 ML SYRINGE IVP STA (17:58)
[2019-10-07] MEDS ORDERED: CALCIUM CHLORIDE ABBOJECT 1000MG/10 ML SYRINGE IVP STA (17:58)
[2019-10-07] MEDS ORDERED: SODIUM BICARBONATE ABBOJECT 50 MEQ/50 ML SYRINGE IVP STA (17:58)
[2019-10-07 18:56] VITALS: BP 142/103
== END 2019-10-07 17:47 | disposition expired ==
LOC: EDUNIT# → ED 16:33
DX: I46.9 Cardiac arrest, cause unspecified (principal); J93.9 Pneumothorax, unspecified; I10 Essential (primary) hypertension
CPT/HCPCS: 32551; 36415; 36556; 71045; 80053; 80320; 82803; 83605; 83690; 83880; 84484; 85025; 85610; 92950; 93005; 94770; 99291